=== PATIENT | female | born 1970 | race African-American/Black ===

== ENCOUNTER 2018-05-15 06:54 | Emergency (ER) | payer OTHER, MEDICAID ==
[~2018-05-15] VITALS: Ht 162.6 cm; Wt 63.0 kg
[~2018-05-15 06:54] MED LIST: AMLO10TA80 PO; BUSP15TA3 PO; CLON1TAB PO; TRAZ-213 PO
[2018-05-15] MEDS ORDERED: ACETAMINOPHEN WITH CODEINE 300/30MG TABLET PO ONE (07:15)
[2018-05-15 08:32] VITALS: BP 124/70
== END 2018-05-15 08:37 | disposition home or self-care (01) ==
LOC: ER 07:35
DX: M25.561 Pain in right knee (principal); I10 Essential (primary) hypertension; F32.9 Major depressive disorder, single episode, unspecified; F41.9 Anxiety disorder, unspecified; W01.0XXA Fall on same level from slipping, tripping and stumbling without subsequent striking against object, initial encounter; Y93.89 Activity, other specified; Y92.89 Other specified places as the place of occurrence of the external cause
CPT/HCPCS: 73562; 99283

== ENCOUNTER 2018-06-28 14:03 | Emergency (ER) | payer MEDICAID, OTHER ==
[~2018-06-28] VITALS: Ht 167.6 cm; Wt 65.0 kg
[2018-06-28 15:37] LABS: BASOPHILS % 0.6 % (0.0-2.0); EOSINOPHILS % 0.7 % (0.0-5.0); HEMATOCRIT. 35.6 % (36.0-48.0); HEMOGLOBIN. 12.5 g/dL (12.0-16.0); LYMPHOCYTES % 13.6 % (20.0-50.0); MEAN CORPUSCULAR HEMOGLOBIN 32.9 pg (28.0-32.0); MEAN CORPUSCULAR VOLUME 93.8 fL (81.0-99.0); NEUTROPHILS % 77.1 % (40.0-76.0); PLATELET 261 x1000/uL (130-400); RED CELL DISTRIBUTION WIDTH 13.1 % (11.6-14.6)
[2018-06-28 15:41] LABS: CHLORIDE 106 mEq/L (98-107)
[2018-06-28 15:45] LABS: ETHANOL BLOOD < 10 mg/dL
[2018-06-28 15:59] LABS: *AMPHETAMINES SCREEN URINE NEGATIVE (NEGATIVE); *BARBITURATES SCREEN URINE NEGATIVE (NEGATIVE); *BENZODIAZEPINES SCREEN URINE NEGATIVE (NEGATIVE); *COCAINE SCREEN URINE PRESUMTIVE POSITIVE (NEGATIVE)
[2018-06-28 16:00] LABS: CANNABINOID URINE SCREEN NEGATIVE (NEGATIVE); METHADONE URINE SCREEN NEGATIVE (NEGATIVE); OPIATES URINE SCREEN NEGATIVE (NEGATIVE); PHENCYCLIDINE URINE SCREEN NEGATIVE (NEGATIVE)
[2018-06-29 06:20] VITALS: BP 156/92
== END 2018-06-29 10:35 | disposition home or self-care (01) ==
LOC: ER 14:03
DX: F14.10 Cocaine abuse, uncomplicated (principal); F41.9 Anxiety disorder, unspecified; R07.89 Other chest pain; E87.6 Hypokalemia; I10 Essential (primary) hypertension; Z59.0 Homelessness
CPT/HCPCS: 36415; 71045; 80305; 80320; 84484; 87804; 93005; 99284; G0480

== ENCOUNTER 2018-11-21 21:25 | Emergency (ER) | payer OTHER ==
[~2018-11-21] VITALS: Ht 170.2 cm; Wt 58.0 kg
[2018-11-21 23:06] LABS: BASOPHILS % 1.3 % (0.0-2.0); EOSINOPHILS % 1.2 % (0.0-5.0); HEMATOCRIT. 37.8 % (36.0-48.0); HEMOGLOBIN. 13.5 g/dL (12.0-16.0); LYMPHOCYTES % 26.2 % (20.0-50.0); MEAN CORPUSCULAR HEMOGLOBIN 33.8 pg (28.0-32.0); MEAN CORPUSCULAR VOLUME 94.8 fL (81.0-99.0); MEAN PLATELET VOLUME 7.5 fl (7.4-10.4); MONOCYTES % 8.2 % (2.0-8.0); NEUTROPHILS % 63.1 % (40.0-76.0); PLATELET 207 x1000/uL (130-400); RED BLOOD CELL COUNT 3.99 mill/uL (4.2-5.4); RED CELL DISTRIBUTION WIDTH 13.2 % (11.6-14.6)
[2018-11-21 23:10] LABS: CHLORIDE 111 mEq/L (98-107)
[2018-11-21 23:26] LABS: *AMPHETAMINES SCREEN URINE NEGATIVE (NEGATIVE); *BARBITURATES SCREEN URINE NEGATIVE (NEGATIVE)
[2018-11-21 23:26] LABS: PARTIAL THROMBOPLASTIN TIME 20.9 sec (23.4-31.0)
[2018-11-21 23:27] LABS: *BENZODIAZEPINES SCREEN URINE NEGATIVE (NEGATIVE); *COCAINE SCREEN URINE PRESUMTIVE POSITIVE (NEGATIVE); CANNABINOID URINE SCREEN NEGATIVE (NEGATIVE); METHADONE URINE SCREEN NEGATIVE (NEGATIVE); OPIATES URINE SCREEN NEGATIVE (NEGATIVE); PHENCYCLIDINE URINE SCREEN PRESUMTIVE POSITIVE (NEGATIVE)
[2018-11-21 23:41] LABS: ETHANOL BLOOD 323 mg/dL
[2018-11-22] MEDS ORDERED: TETANUS, DIPHTHERIA, PERTUSSIS VAC/PF 0.5ML (>7YR OLD) IM ONE
[2018-11-22 05:14] VITALS: BP 140/81
== END 2018-11-22 06:05 | disposition short-term general hospital (02) ==
LOC: ER 21:25
DX: S05.32XA Ocular laceration without prolapse or loss of intraocular tissue, left eye, initial encounter (principal); S01.112A Laceration without foreign body of left eyelid and periocular area, initial encounter; I10 Essential (primary) hypertension; F41.9 Anxiety disorder, unspecified; F17.210 Nicotine dependence, cigarettes, uncomplicated; F14.10 Cocaine abuse, uncomplicated; E87.6 Hypokalemia; D72.819 Decreased white blood cell count, unspecified; F16.10 Hallucinogen abuse, uncomplicated; F10.229 Alcohol dependence with intoxication, unspecified; Y90.8 Blood alcohol level of 240 mg/100 ml or more; Y00.XXXA Assault by blunt object, initial encounter; Y93.89 Activity, other specified; Y92.488 Other paved roadways as the place of occurrence of the external cause
CPT/HCPCS: 36415; 70486; 80305; 80320; 82962; 86850; 86900; 90471; 90715; 99285; G0480

== ENCOUNTER 2018-12-06 17:39 | Emergency (ER) | payer OTHER ==
[~2018-12-06] VITALS: Ht 157.5 cm; Wt 65.0 kg
[2018-12-06] MEDS ORDERED: LORAZEPAM 0.5MG TABLET PO ONE (19:00)
[2018-12-06] MEDS ORDERED: ACETAMINOPHEN 325MG TABLET PO ONE (20:00)
[2018-12-06 22:41] VITALS: BP 132/74
== END 2018-12-06 22:44 | disposition home or self-care (01) ==
LOC: ER 17:39
DX: F41.1 Generalized anxiety disorder (principal); G89.18 Other acute postprocedural pain; H57.12 Ocular pain, left eye; I10 Essential (primary) hypertension; Z98.890 Other specified postprocedural states
CPT/HCPCS: 71045; 99284

== ENCOUNTER 2019-05-06 15:42 | Emergency (ER) | payer MEDICAID ==
[~2019-05-06] VITALS: Ht 160 cm; Wt 54.0 kg
[~2019-05-06 15:42] MED LIST changes: -TRAZ-213 PO; +TRAZ-252 PO
[2019-05-06] MEDS ORDERED: ACETAMINOPHEN 325MG TABLET PO ONE (20:15)
[2019-05-06 20:57] VITALS: BP 128/74
== END 2019-05-06 21:15 | disposition home or self-care (01) ==
LOC: ER 15:42
DX: R07.1 Chest pain on breathing (principal); R07.81 Pleurodynia; I10 Essential (primary) hypertension; F12.10 Cannabis abuse, uncomplicated; Z79.899 Other long term (current) drug therapy
CPT/HCPCS: 71045; 93005; 99284